=== PATIENT | male | born 1960 | race Caucasian/White ===

== ENCOUNTER 2022-09-21 14:19 | Observation (INO) ==
[2022-09-21] MEDS ORDERED: PROMETHAZINE 25 MG/1 ML VIAL IM STA (14:47)
[2022-09-21] MEDS ORDERED: MECLIZINE 25 MG TABLET PO STA (14:47)
[2022-09-21 15:09] LABS: Basophils % 0.3 % (0.0-0.8); Eosinophils # 0.2 10*3/uL (0.0-0.87); Eosinophils % 1.9 % (0.00-10.9); Hematocrit 44.2 VOL% (42.0-52.0); Hemoglobin 14.8 GM/DL (14.0-18.0); Immature Granulocytes % 0.6 %; Immature Granulocytes Absolute 0.05 #; Lymphocytes # 0.1 10*3/uL (1.4-4.0); Lymphocytes % 1.7 % (21.2-54.2); Mean Corpuscular HGB Conc 33.5 GM/DL (32-36); Mean Corpuscular Volume 91.9 FL (87-102); Mean Platelet Volume 9.7 FL (9.6-12.0); Monocytes # 0.3 10*3/uL (0.11-0.8); Monocytes % 3.6 % (1.7-12.7); Neutrophils % 91.9 % (38.7-73.9); Platelet Count 174 T/CUMM (130-400); Red Blood Count 4.81 MC/CUMM (3.8-5.5); Red Cell Distribution Width 13.4 % (9.3-17.3); White Blood Count 7.8 T/CUMM (4-12)
[2022-09-21 15:19] LABS: PT Patient Result 10.8 SECS (10.1-12.1)
[2022-09-21 15:27] LABS: Albumin 3.8 G/DL (3.4-5.0); Bilirubin,Total 0.6 MG/DL (0.20-1.00); Calcium 8.8 MG/DL (8.5-10.1); Osmolality,Calculated 283.8 MOS/KG (273-304)
[2022-09-21 15:34] LABS: Band Neutrophils 16 % (0-10); Eosinophils 4 % (0-10); Lymphocytes 2 % (20-55); Platelet Estimate Adequate; Total Cells Counted 100
[2022-09-21] MEDS ORDERED: DOCUSATE SODIUM 100 MG CAPSULE PO PRN (16:23)
[2022-09-21] MEDS ORDERED: ACETAMINOPHEN 325 MG TABLET PO PRN (16:23)
[2022-09-21] MEDS ORDERED: GLUCAGON 1 MG VIAL IM PRN (16:23)
[2022-09-21] MEDS ORDERED: ONDANSETRON 4 MG/2 ML VIAL IV PRN (16:23)
[2022-09-21 16:31] LABS: Bilirubin,Urine Negative (Negative); Blood, Urine Negative (Negative); Glucose,Urine (UA) Negative (Negative); Hyaline Casts,Urine 1 /LPF (0-3); Ketones,Urine Trace mg/dL (Negative); Mucus,Urine Occasional /LPF (Occasional); Nitrite,Urine Negative (Negative); Protein,Urine Negative (Negative); RBC,Urine 1 /HPF (0-4); Squamous Epithelial Cell,Urine Occasional /HPF (0-10); Urine Appearance Clear (Clear); Urine Color Yellow (Yellow); Urine Specific Gravity 1.025 (1.001-1.035); Urine Urobilinogen 0.2 eU/dL (<2.0); Urine pH 5.5 (4.5-8.0)
[2022-09-21] MEDS ORDERED: DEXTROSE 10% 250 ML BAG IV PRN (16:32)
[2022-09-21] MEDS: ENOXAPARIN 40 MG/0.4 ML SYRINGE SUBCUT SCH (19:24)
[2022-09-21] MEDS: SODIUM CHLORIDE 0.45% 1,000 ML IV SCH (19:25)
[2022-09-21] MEDS: INSULIN REGULAR 100 UNIT/ML SUBCUT SCH (19:25)
[2022-09-22] MEDS: OSELTAMIVIR 75 MG CAPSULE PO SCH ×3 (00:08→20:57)
[2022-09-22] MEDS: INSULIN REGULAR 100 UNIT/ML SUBCUT SCH ×5 (00:11→20:58)
[2022-09-22] MEDS: SODIUM CHLORIDE 0.45% 1,000 ML IV SCH ×2 (00:13→22:36)
[2022-09-22 05:48] LABS: Basophils % 0.4 % (0.0-0.8); Eosinophils # 0.1 10*3/uL (0.0-0.87); Eosinophils % 1.9 % (0.00-10.9); Hematocrit 38.7 VOL% (42.0-52.0); Hemoglobin 12.9 GM/DL (14.0-18.0); Immature Granulocytes % 0.8 %; Immature Granulocytes Absolute 0.04 #; Lymphocytes # 0.5 10*3/uL (1.4-4.0); Lymphocytes % 10.5 % (21.2-54.2); Mean Corpuscular HGB Conc 33.3 GM/DL (32-36); Mean Corpuscular Volume 92.4 FL (87-102); Monocytes # 0.3 10*3/uL (0.11-0.8); Monocytes % 6.2 % (1.7-12.7); Neutrophils % 80.2 % (38.7-73.9); Platelet Count 152 T/CUMM (130-400); Red Blood Count 4.19 MC/CUMM (3.8-5.5); Red Cell Distribution Width 13.6 % (9.3-17.3); White Blood Count 5.1 T/CUMM (4-12)
[2022-09-22 06:20] LABS: Risk Ratio 3.29; VLDL Cholesterol 28.4 MG/DL
[2022-09-22 06:24] LABS: Calcium 8.1 MG/DL (8.5-10.1); Osmolality,Calculated 276.1 MOS/KG (273-304); Potassium 3.5 MMOL/L (3.5-5.1); Thyroid Stimulating Hormone 1.15 uIU/ml (0.358-3.74)
[2022-09-22] MEDS ORDERED: FUROSEMIDE 20 MG TABLET PO SCH (09:00)
[2022-09-22] MEDS: SIMVASTATIN 10 MG TABLET PO SCH (09:15)
[2022-09-22] MEDS: lisinopriL 10 MG TABLET PO SCH (09:15)
[2022-09-22] MEDS: allopurinoL 100 MG TABLET PO SCH (09:15)
[2022-09-22] MEDS: PANTOPRAZOLE 40 MG TABLET PO SCH (09:15)
[2022-09-22] MEDS: ASPIRIN EC 81 MG TABLET PO SCH (09:15)
[2022-09-22] MEDS ORDERED: MECLIZINE 25 MG TABLET PO PRN (09:45)
[2022-09-22] MEDS: ENOXAPARIN 40 MG/0.4 ML SYRINGE SUBCUT SCH (17:30)
[2022-09-23 06:14] LABS: Basophils % 0.4 % (0.0-0.8); Eosinophils # 0.2 10*3/uL (0.0-0.87); Eosinophils % 4.2 % (0.00-10.9); Hematocrit 37.8 VOL% (42.0-52.0); Hemoglobin 12.5 GM/DL (14.0-18.0); Immature Granulocytes % 1.1 %; Immature Granulocytes Absolute 0.05 #; Lymphocytes # 0.7 10*3/uL (1.4-4.0); Lymphocytes % 14.6 % (21.2-54.2); Mean Corpuscular HGB Conc 33.1 GM/DL (32-36); Mean Corpuscular Volume 94.7 FL (87-102); Mean Platelet Volume 9.9 FL (9.6-12.0); Monocytes # 0.5 10*3/uL (0.11-0.8); Monocytes % 9.9 % (1.7-12.7); Neutrophils % 69.8 % (38.7-73.9); Platelet Count 165 T/CUMM (130-400); Red Blood Count 3.99 MC/CUMM (3.8-5.5); Red Cell Distribution Width 13.6 % (9.3-17.3); White Blood Count 4.7 T/CUMM (4-12)
[2022-09-23 06:44] LABS: Calcium 7.7 MG/DL (8.5-10.1); Osmolality,Calculated 282.4 MOS/KG (273-304); Potassium 3.6 MMOL/L (3.5-5.1)
[2022-09-23] MEDS: INSULIN REGULAR 100 UNIT/ML SUBCUT SCH ×2 (08:59→11:38)
[2022-09-23] MEDS: ASPIRIN EC 81 MG TABLET PO SCH (09:00)
[2022-09-23] MEDS: allopurinoL 100 MG TABLET PO SCH (09:00)
[2022-09-23] MEDS: PANTOPRAZOLE 40 MG TABLET PO SCH (09:00)
[2022-09-23] MEDS: OSELTAMIVIR 75 MG CAPSULE PO SCH (09:00)
[2022-09-23] MEDS: lisinopriL 10 MG TABLET PO SCH (09:00)
[2022-09-23] MEDS: SIMVASTATIN 10 MG TABLET PO SCH (09:00)
[2022-09-23 11:50] VITALS: BP 112/68
== END 2022-09-23 14:19 | disposition home or self-care (01) ==
LOC: N.ED 14:19 → N.EDINP 14:19 → SUATTDRO 16:22 → N.2E 18:47 → N.TELEN 18:48
PROVIDERS: ADMIT Hospitalist; ATTEND Internal Medicine